=== PATIENT | male | born 1980 | race American Indian/Alaskan Native ===

== ENCOUNTER 2019-02-02 01:20 | Emergency (ER) | payer SELFPAY ==
[2019-02-02 02:11] VITALS: BP 180/101
== END 2019-02-02 09:46 | disposition left against medical advice (07) ==
LOC: ED 01:20
DX: M79.672 Pain in left foot (principal); Z53.21 Procedure and treatment not carried out due to patient leaving prior to being seen by health care provider

== ENCOUNTER 2019-04-12 19:57 | Emergency (ER) | payer OTHER ==
[2019-04-12] MEDS ORDERED: SODIUM CHLORIDE 0.9% 1000 ML 1,000 ML IV ONE (20:06)
--- NOTE | 2019-04-12 20:08 | Emergency Department Report ---
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 EMS documentation not available at time of chart dictation ), RN notes reviewed, old records reviewed Mode of arrival: Stretcher Limitations: No Limitations - History of Present Illness Initial comments: The patient is a 39-year-old gentleman. He apparently has a history of anxiety. He also has a history of distant traumatic injury to right foot. He is brought to the hospital by emergency medical services. Apparently, the patient was at work, and "had a panic attack", while in a work freezer, and was found laying down in the freezer, and hypothermic. The patient is not sure if he passed out. He denies DVT and pulmonary embolism risk factors. He denies extremity weakn ess and/or numbness. He has chronic foot pain. He also has paralumbar back pain. He reports feeling very anxious. He is not having chest pain, headache or abdominal pain. He is not sure if he hit his head. He denies homicidality and suicidality. His anxiety is intermittent. His right foot pain is chronic. His back pain is subacute. As per verbal report from EMS, patient found to be relatively hypothermic, and they therefore started the patient on warmed fluids and a warmer. In [facility] [place] [facility], the patient is found to be normothermic with a core temperature of 97.4 degrees. -: Sudden Location: back, lower extremity Quality: aching Consistency: other Improves with: rest Worsens with: movement - Related Data Allergies Allergy/AdvReac Type Severity Reaction Status Date / Time No Known Allergies Allergy Unverified 02/02/19 02:10 ED Review of Systems ROS: Stated complaint: HYPOTHERMIC Other details as noted in HPI Constitutional: malaise Eyes: denies: eye discharge ENT: denies: congestion Cardiovascular: syncope Gastrointestinal: denies: nausea Musculoskeletal: back pain, myalgia Skin: denies: lesions Neurological: denies: weakness Psychiatric: denies: homicidal thoughts, suicidal thoughts Hematological/Lymphatic: as per HPI ED Past Medical Hx - Past Medical History Hx Hypertension: Yes - Social History Smoking Status: Current Every Day Smoker Substance Use Type: None ED Physical Exam - General Limitations: No Limitations General appearance: alert, anxious, in distress - Head Head exam: Present: atraumatic, normocephalic - Eye Eye exam: Present: normal appearance, PERRL, EOMI. Absent: nystagmus - ENT ENT exam: Present: normal exam, normal orophraynx, mucous membranes moist, normal external ear exam - Neck Neck exam: Present: normal inspection, full ROM. Absent: tenderness, meningismus - Respiratory Respiratory exam: Present: normal lung sounds bilaterally. Absent: respiratory distress - Cardiovascular Cardiovascular Exam: Present: regular rate, normal rhythm, normal heart sounds. Absent: bradycardia, tachycardia, irregular rhythm, systolic murmur, diastolic murmur, rubs, gallop - GI/Abdominal GI/Abdominal exam: Present: soft. 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 There is no palpable cord. negative Homans sign. Muscular compartments are soft. The pelvis is stable.). Absent: calf tenderness - Back Exam Back exam: Present: normal inspection, full ROM, paraspinal tenderness. Absent: CVA tenderness (R), CVA tenderness (L) - Neurological Exam Neurological exam: Present: alert, oriented X3, other (There is no facial droop. The tongue is midline. Extraocular movements are intact bilaterally. There is 5 out of 5 strength in bilateral upper and lower extremities. Sensation is intact to light touch bilateral upper and lower extremities. There is a normal gait.) - Psychiatric Psychiatric exam: Present: anxious. Absent: homicidal ideation, suicidal ideation - Skin Skin exam: Present: warm, dry, intact, normal color. Absent: rash ED Course Vital Signs 04/12/19 04/12/19 04/12/19 20:08 20:10 20:15 Temperature 97.4 F L Pulse Rate 67 65 Respiratory 26 H 37 H Rate Blood Pressure 149/90 157/98 Blood Pressure [Left] O2 Sat by Pulse 100 99 Oximetry 04/12/19 04/12/19 04/12/19 20:23 20:33 21:00 Temperature Pulse Rate 66 78 Respiratory 18 27 H 13 Rate Blood Pressure 157/98 159/100 Blood Pressure [Left] O2 Sat by Pulse 100 100 Oximetry 04/12/19 22:29 Temperature 98.7 F Pulse Rate 65 Respiratory 18 Rate Blood Pressure Blood Pressure 149/87 [Left] O2 Sat by Pulse 100 Oximetry ED Medical Decision Making - Lab Data Result diagrams: 04/12/19 20:12 04/12/19 20:12 Vital Signs 04/12/19 04/12/19 04/12/19 20:08 20:10 20:15 Temperature 97.4 F L Pulse Rate 67 65 Respiratory 26 H 37 H Rate Blood Pressure 149/90 157/98 O2 Sat by Pulse 100 99 Oximetry 04/12/19 20:23 Temperature Pulse Rate Respiratory 18 Rate Blood Pressure O2 Sat by Pulse 100 Oximetry Lab Results 04/12/19 04/12/19 04/12/19 Range/Units 20:12 20:12 20:12 WBC 7.8 (4.5-11.0) K/mm3 RBC 4.67 (3.65-5.03) M/mm3 Hgb 13.4 (11.8-15.2) gm/dl Hct 40.8 (35.5-45.6) % MCV 87 (84-94) fl MCH 29 (28-32) pg MCHC 33 (32-34) % RDW 15.3 H (13.2-15.2) % Plt Count 195 (140-440) K/mm3 PT 14.6 (12.2-14.9) Sec. INR 1.12 (0.87-1.13) Sodium 134 L (137-145) mmol/L Potassium 3.8 (3.6-5.0) mmol/L Chloride 100.8 (98-107) mmol/L Carbon Dioxide 19 L (22-30) mmol/L Anion Gap 18 mmol/L BUN 7 L (9-20) mg/dL Creatinine 0.5 L (0.8-1.5) mg/dL Estimated GFR > 60 ml/min BUN/Creatinine Ratio 14 % Glucose 78 (75-100) mg/dL Calcium 9.2 (8.4-10.2) mg/dL Magnesium 2.00 (1.7-2.3) mg/dL Total Bilirubin 0.50 (0.1-1.2) mg/dL AST 20 (5-40) units/L ALT 16 (7-56) units/L Alkaline Phosphatase 77 (35-129) units/L Total Creatine Kinase 135 (55-170) units/L Total Protein 7.0 (6.3-8.2) g/dL Albumin 4.2 (3.9-5) g/dL Albumin/Globulin Ratio 1.5 % Salicylates (2.8-20.0) mg/dL Acetaminophen (10.0-30.0) ug/mL Plasma/Serum Alcohol (0-0.07) % 04/12/19 04/12/19 04/12/19 Range/Units 20:12 20:12 20:12 WBC (4.5-11.0) K/mm3 RBC (3.65-5.03) M/mm3 Hgb (11.8-15.2) gm/dl Hct (35.5-45.6) % MCV (84-94) fl MCH (28-32) pg MCHC (32-34) % RDW (13.2-15.2) % Plt Count (140-440) K/mm3 PT (12.2-14.9) Sec. INR (0.87-1.13) Sodium (137-145) mmol/L Potassium (3.6-5.0) mmol/L Chloride (98-107) mmol/L Carbon Dioxide (22-30) mmol/L Anion Gap mmol/L BUN (9-20) mg/dL Creatinine (0.8-1.5) mg/dL Estimated GFR ml/min BUN/Creatinine Ratio % Glucose (75-100) mg/dL Calcium (8.4-10.2) mg/dL Magnesium (1.7-2.3) mg/dL Total Bilirubin (0.1-1.2) mg/dL AST (5-40) units/L ALT (7-56) units/L Alkaline Phosphatase (35-129) units/L Total Creatine Kinase (55-170) units/L Total Protein (6.3-8.2) g/dL Albumin (3.9-5) g/dL Albumin/Globulin Ratio % Salicylates < 0.3 L (2.8-20.0) mg/dL Acetaminophen < 5.0 L (10.0-30.0) ug/mL Plasma/Serum Alcohol < 0.01 (0-0.07) % - EKG Data -: EKG Interpreted by Me EKG shows normal: sinus rhythm Rate: normal - EKG Data When compared to previous EKG there are: previous EKG unavailable 04/12/19 21:56 Sinus rhythm, 69 bpm, normal axis, QTC 460 ms, high left ventricular voltage, incomplete right bundle branch block, abnormal EKG, no prior for comparison, not a STEMI - Radiology Data Radiology results: report reviewed, image reviewed Print Report Referring Physician: LEVON HALL Patient Name: AREN COWRAT Date of : 1980 Sex: Male Report Date: 2019-04-12 Report Status: Finalized Findings [address] [address] XRay Report Signed Patient: AREN COWART MR# : [id number] : 1980 Acct:[id number] Age/Sex: 39 / M ADM Date: 04/12/19 Loc: ED Attending Dr: Ordering Physician: LEVON HALL MD Date of Service: 04/12/19 Procedure(s): XR spine lumbosacral 2-3V Accession Number(s): [id number] cc: LEVON HALL MD Fluoro Time In Minutes: LUMBOSACRAL SPINE 3 VIEWS INDICATION / CLINICAL INFORMATION: Fall with back pain. COMPARISON: None available. FINDINGS: BONES / JOINT(S): There is mild degenerative disc disease at L4-5. Mild anterolisthesis of L4 on L5 may be degenerative. I do not identify spondylolysis. The other disc spaces are normal. I do not identify an acute fracture. SOFT TISSUES: No significant abnormality. ADDITIONAL FINDINGS: None. Signer Name: Jemal De La O MD Signed: 04/12/2019 9:39 PM Workstation Name: [id number] Transcribed By: RT Dictated By: Jemal De La O MD Electronically Authenticated By: Jemal De La O MD Signed Date/Time: 04/12/192138 Print Report Referring Physician: LEVON HALL Patient Name: AREN COWART Date of : 1980 Sex: Male Report Date: 2019-04-12 Report Status: Finalized Findings [address] [address] XRay Report Signed Patient: AREN COWART MR# : [id number] : 1980 Acct:[id number] Age/Sex: 39 / M ADM Date: 04/12/19 Loc: ED Attending Dr: Ordering Physician: LEVON HALL MD Date of Service: 04/12/19 Procedure(s): XR chest 1V ap Accession Number(s): [id number] cc: LEVON HALL MD Fluoro Time In Minutes: CHEST 1 VIEW 9:23 PM INDICATION / CLINICAL INFORMATION: Syncope and back pain. COMPARISON: None available. FINDINGS: SUPPORT DEVICES: None. HEART / MEDIASTINUM: The heart size and pulmonary vasculature are normal. The aorta is normal in caliber. LUNGS / PLEURA: No significant pulmonary or pleural abnormality. No pneumothorax. ADDITIONAL FINDINGS: No significant additional findings. IMPRESSION: No acute findings. Signer Name: Jemal De La O MD Signed: 04/12/2019 9:38 PM Workstation Name: [id number] Transcribed By: RT Dictated By: Jemal De La O MD Electronically Authenticated By: Jemal De La O MD Signed Date/Time: 04/12/192137 DD/ 36 Print Report Referring Physician: LEVON HALL Patient Name: AREN COWART Date of : 1980 Sex: Male Report Date: 2019-04-12 Report Status: Finalized Findings [address] [address] Cat Scan Report Signed Patient: AREN COWART MR# : [id number] : 1980 Acct:[id number] Age/Sex: 39 / M ADM Date: 04/12/19 Loc: ED Attend ing Dr: Ordering Physician: LEVON HALL MD Date of Service: 04/12/19 Procedure(s): CT cervical spine wo con Accession Number(s): [id number] cc: LEVON HALL MD Exam: CT cervical spine History: syncope closed head injury neck pain; Technique: Contiguous thin cut axial images obtained through the cervical spine. Sagittal and coronal reconstructions performed by the technologist. All CT scans at this location are performed using CT dose reduction for ALARA by means of automated exposure control. Findings: No priors. There is no evidence of fracture or traumatic subluxation. Prevertebral space is normal. No fracture is seen traversing the bony canal. Vertebral bodies are normal in height and alignment. Intervertebral disc spaces are well-maintained. No significant degenerative change seen in the uncinate or facet joints. No significant canal stenosis or osseous foraminal narrowing. Surrounding soft tissues are grossly normal. Impression: No signs of acute bony trauma to the cervical spine. Signer Name: Leigh Booth MD Signed: 04/12/2019 8:59 PM Workstation Name: [id number] Transcribed By: BS Dictated By: Leigh Marroquin MD Electronically Authenticated By: Leigh Marroquin MD Signed Date/Time: 04/12/192058 DD/ 56 TD/TT: Print Report Referring Physician: LEVON HALL Patient Name: AREN COWART Date of : 1980 Sex: Male Report Date: 2019-04-12 Report Status: Finalized Findings [facility] [address] [place] [address] Cat Scan Report Signed Patient: AREN COWART MR# : [id number] : 1980 Acct:[id number] Age/Sex: 39 / M ADM Date: 04/12/19 Loc: ED Attending Dr: Ordering Physician: LEVON HALL MD Date of Service: 04/12/19 Procedure(s): CT head/brain wo con Accession Number(s): [id number] cc: LEVON HALL MD NONENHANCED CT SCAN OF THE HEAD: INDICATION / CLINICAL INFORMATION: 39 years Male; syncope closed head injury. TECHNIQUE: Routine CT head without contrast. All CT scans at this location are performed using CT dose reduction for ALARA by means of automated exposure control. COMPARISON: None. FINDINGS: BRAIN / INTRACRANIAL CONTENTS: No intracranial sequela from the trauma. No fluid level in the visualized portions of the paranasal sinuses; No acute hemorrhage, mass effect, midline shift, hydrocephalus, or acute, large territorial infarct. No chronic infarct or focal atrophy. Normal brain volume and ventricular/sulcal size for age. No significant white matter abnormality. CRANIOCERVICAL JUNCTION: No significant abnormality. ORBITS: No significant abnormality of visualized orbits. SINUSES / MASTOIDS: No significant abnormality of the visualized paranasal sinuses or mastoid air cells. ADDITIONAL FINDINGS: None. IMPRESSION: No intracranial sequela from the trauma. Signer Name: Leigh Booth MD Signed: 04/12/2019 9:22 PM Workstation Name: [email or web address] Transcribed By: BS Dictated By: Leigh Marroquin MD Electronically Authenticated By: Leigh Marroquin MD Signed Date/Time: 04/12/192121 DD/ 18 TD/TT: - Medical Decision Making Differential diagnosis, including but not limited to: Orthostasis, vagal event, structural cardiac disease, panic attack, intracranial injury, spinal injury, paralumbar pain, malingering Assessment and plan: 39-year-old gentleman, who denies DVT and pulmonary embolus risk factors, who is not tachycardic or hypoxic, who is perc negative, who was at work, and apparently had a panic attack or episode of syncope, and was subsequently found laying in a freezer by coworkers. He is resuscitated in the field, and in the emergency room. He is normothermic while he is here. His physical examination is fairly unremarkable. His objective laboratory testing and imaging studies do not demonstrate an emergent traumatic condition. He was somewhat distracted, and very anxious, although he is clinically sober. His employer is at the bedside, and they state that they are very concerned about the patient. Apparently, he has been coming to work, perhaps taking Percocet which was prescribed for him, they do report that he was walking around earlier on today without difficulty, and they report they have had multiple issues with the patient presenting to work. The patient after appropriate diagnostic testing and observation in the emergency room has not been found to have an emergency medical condition. He is complaining of chronic right foot pain, but is not tender in the right foot. He was prescribed ibuprofen for this. He will be given crutches, weightbearing as tolerated. He does not meet criteria for 1013 hold or psychiatric hold. He will need to follow-up with an outpatient primary care doctor. Critical care attestation.: If time is entered above; I have spent that time in minutes in the direct care of this critically ill patient, excluding procedure time. ED Disposition Clinical Impression: Hypothermia due to cold environment, Fall, Back pain, Foot pain Disposition: DC- TO HOME OR SELFCARE Is pt being admited?: No Does the pt Need Aspirin: No Condition: Stable Additional Instructions: Recommend that patient not drive or operate motor vehicles until cleared to do so by her primary care doctor or international trade manager. Recommend following up with her primary care doctor or international trade manager within the next 7 to 10 days. Recommend that patient avoid alcohol and sedating medications, such as Percocet. Weightbearing as tolerated on the right lower extremity, use the crutches as needed, patient may take [id number] ibuprofen, 600 mg by mouth, with food, every 6 hours as needed for pain, alternating with Tylenol, 650 mg by mouth, every 4-6 hours as needed for pain. Avoid consumption of recreational drugs as well. Please return to the emergency room right away with new, worsened or different symptoms, or symptoms not pres ent on the initial emergency room evaluation. Referrals: DARRIUS DOYLE MD [Primary Care Provider] - 3-5 Days [facility] [Provider Group] - 3-5 Days Forms: Work/School Release Form(ED)
[2019-04-12 20:27] LABS: Hematocrit 40.8 % (35.5-45.6); Hemoglobin 13.4 gm/dl (11.8-15.2); Mean Corpuscular HGB Conc 33 % (32-34); Mean Corpuscular Volume 87 fl (84-94); Platelet Count 195 K/mm3 (140-440); Red Blood Count 4.67 M/mm3 (3.65-5.03); Red Cell Distribution Width 15.3 % (13.2-15.2)
[2019-04-12 20:36] LABS: Alanine Aminotransferase 16 units/L (7-56); Albumin 4.2 g/dL (3.9-5); BUN/Creatinine Ratio 14; Blood Urea Nitrogen 7 mg/dL (9-20); Calcium 9.2 mg/dL (8.4-10.2); Hemolysis Index 31
[2019-04-12 20:38] LABS: INR 1.12 (0.87-1.13)
--- NOTE | 2019-04-12 21:04 | Cat Scan Report ---
Exam: CT cervical spine History: syncope closed head injury neck pain; Technique: Contiguous thin cut axial images obtained through the cervical spine. Sagittal and camacho l reconstructions performed by the technologist. All CT scans at this location are performed using CT dose reduction for ALARA by means of automated exposure control. Findings: No priors. There is no evidence of fracture or traumatic subluxation. Prevertebral space is normal. No fracture is seen traversing the bony canal. Vertebral bodies are normal in height and alignment. Intervertebral disc spaces are well-maintained. No significant degenerative change seen in the uncinate or facet joints. No significant canal stenosi s or osseous foraminal narrowing. Surrounding soft tissues are grossly normal. Impression: No signs of acute bony trauma to the cervical spine. Signer Name: Leigh Booth MD Signed: 04/12/2019 8:59 PM Workstation Name: [id number]
--- NOTE | 2019-04-12 21:27 | Cat Scan Report ---
NONENHANCED CT SCAN OF THE HEAD: INDICATION / CLINICAL INFORMATION: 39 years Male; syncope closed head injury. TECHNIQUE: Routine CT head without contrast. All CT scans at this location are performed using CT dos e reduction for ALARA by means of automated exposure control. COMPARISON: None. FINDINGS: BRAIN / INTRACRANIAL CONTENTS: No intracranial sequela from the trauma. No fluid level in the visuali zed portions of the paranasal sinuses; No acute hemorrhage, mass effect, midline shift, hydrocephalus, or acute, large territorial infarct. No chronic infarct or focal atrophy. Normal brain volume and ventricular/sulcal size for age. No sign ificant white matter abnormality. CRANIOCERVICAL JUNCTION: No significant abnormality. ORBITS: No significant abnormality of visualized orbits. SINUSES / MASTOIDS: No significant abnormality of the visualized paranasal sinuses or mastoid air pedro ls. ADDITIONAL FINDINGS: None. IMPRESSION: No intracranial sequela from the trauma. Signer Name: Leigh Booth MD Signed: 04/12/2019 9:22 PM Workstation Name: [email or web address]
[2019-04-12] MEDS ORDERED: KETOROLAC 30 MG/1 ML INJ IV ONE (21:35)
--- NOTE | 2019-04-12 21:42 | XRay Report ---
CHEST 1 VIEW 9:23 PM INDICATION / CLINICAL INFORMATION: Syncope and back pain. COMPARISON: None available. FINDINGS: SUPPORT DEVICES: None. HEART / MEDIASTINUM: The heart size and pulmonary vasculature are normal. The aorta is normal in [place]. LUNGS / PLEURA: No significant pulmonary or pleural abnormality. No pneumothorax. ADDITIONAL FINDINGS: No significant additional findings. IMPRESSION: No acute findings. Signer Name: Jemal De La O MD Signed: 04/12/2019 9:38 PM Workstation Name: [id number]
--- NOTE | 2019-04-12 21:44 | XRay Report ---
LUMBOSACRAL SPINE 3 VIEWS INDICATION / CLINICAL INFORMATION: Fall with back pain. COMPARISON: None available. FINDINGS: BONES / JOINT(S): There is mild degenerative disc disease at L4-5. Mild anterolisthesis of L4 on L5 m ay be degenerative. I do not identify spondylolysis. The other disc spaces are normal. I do not ident jarrett an acute fracture. SOFT TISSUES: No significant abnormality. ADDITIONAL FINDINGS: None. Signer Name: Jemal De La O MD Signed: 04/12/2019 9:39 PM Workstation Name: [id number]
[2019-04-12 22:42] VITALS: BP 149/87
== END 2019-04-12 22:28 | disposition home or self-care (01) ==
LOC: ED 19:57
DX: T68.XXXA Hypothermia, initial encounter (principal); M54.89 Other dorsalgia; M79.671 Pain in right foot; I10 Essential (primary) hypertension; F17.200 Nicotine dependence, unspecified, uncomplicated; W18.39XA Other fall on same level, initial encounter; Y93.89 Activity, other specified; Y92.89 Other specified places as the place of occurrence of the external cause; Y99.8 Other external cause status
CPT/HCPCS: 36415; 70450; 71045; 72100; 72125; 80053; 82550; 83735; 85027; 85610; 93005; 93010; 96374; 99285; J1885; 80320; G0480